=== PATIENT | female | born 1990 | race African-American/Black ===

== ENCOUNTER 2016-05-02 21:58 | Emergency (ER) | payer BC, OTHER ==
[~2016-05-02] VITALS: Ht 160 cm; Wt 72.5 kg
[~2016-05-02 21:58] MED LIST: PREN1TAB30 PO
[2016-05-02 21:59] VITALS: BP 148/76; PULSE 84; RESP 18; TEMP 97.7; O2SAT 98
--- NOTE | 2016-05-02 22:52 | PD ---
HPI Chief Complaint: Complaint Time Seen by Provider: 22:49 Travel History International Travel<30 days: No Contact w/Intl Traveler<30days: No Traveled to known affect area: No History of Present Illness HPI 26-year-old female that presents to the ED for evaluation of vaginal irritation. Per patient she's had this irritation for the past 6 days. Per patient she had a initially was 6 days ago but it went away for 2 days and then it now has come back. Per patient she has intercourse with the same individual. Per patient they dont use protection. Denies any pain but feels like there is pressure in the area. Denies any possibility of stating that she uses control. No chest pain or shortness of breath. No fevers chills or sweats. No discharge. No bleeding. Per patient he last missed her period was last month. No allergies to medication. PFSH Past Medical History Cardiovascular Problems: Yes (CARDIAC MURMUR AT ) Diminished Hearing: No Immunizations Current: Yes ?: Unknown LMP: 04/24/16 : 2 Para: 1 Miscarriage: 0 : 1 Past Surgical History Surgical History: No Previous Surgery Social History Alcohol Use: Yes Tobacco Use: No Substance Use: Yes (MARIJUANA) Allergies-Medications (Allergen,Severity, Reaction): Coded Allergies: No Known Allergies (Verified , 05/02/16) Reported Meds & Prescriptions Reported Meds & Active Scripts Active Vitamins ( Vit W/ Ferrous Fumara) 1 Tab Tab 1 Tab PO DAILY Review of Systems Except as stated in HPI: all other systems reviewed are Neg Physical Exam Narrative GENERAL: SKIN: Warm and dry. HEAD: Atraumatic. Normocephalic. EYES: Pupils equal and round. No scleral icterus. No injection or drainage. ENT: No nasal bleeding or discharge. Mucous membranes pink and moist. NECK: Trachea midline. No JVD. CARDIOVASCULAR: Regular rate and rhythm. RESPIRATORY: No accessory muscle use. Clear to auscultation. Breath sounds equal bilaterally. GASTROINTESTINAL: Abdomen soft, non-tender, nondistended. Hepatic and splenic margins not palpable. Vaginal exam: Done with female nurse present. Patient has no deformities in the labia or any lymphadenopathy noted. No masses. Patient does appear to have greenish/whitish discharge that is very foul smelling coming from the vagina itself. No cervical tenderness. No adnexal tenderness. MUSCULOSKELETAL: Extremities without clubbing, cyanosis, or edema. No obvious deformities. NEUROLOGICAL: Awake and alert. No obvious cranial nerve deficits. Motor grossly within normal limits. Five out of 5 muscle strength in the arms and legs. Normal speech. PSYCHIATRIC: Appropriate mood and affect; insight and judgment normal. Data Data Last Documented VS Vital Signs Date Time Temp Pulse Resp B/P Pulse Ox O2 Delivery O2 Flow Rate FiO2 05/02/16 21:59 97.7 84 18 148/76 98 Orders Gc And Chlamydia Pcr (05/02/16 22:29) Wet Prep Profile (05/02/16 22:29) Urinalysis - C+S If Indicated (05/02/16 22:29) MDM Medical Decision Making Medical Screen Exam Complete: Yes Emergency Medical Condition: Yes Medical Record Reviewed: Yes Differential Diagnosis STD versus bacterial vaginosis versus vaginitis versus yeast versus Trichomonas Narrative Course 26-year-old female that presents to the ED for evaluation of vaginal irritation. Patient was properly examined and was found to have signs and symptoms consistent appears to be vaginitis. Vaginal discharge noted. Labs were sent. Patient will be signed out to my attending pending lab report. Jack Carlos May 02, 2016 22:52
[2016-05-02 23:00] LABS: BACTERIA, URINE RARE /hpf; BLOOD, URINE NEG (NEG); COMMENT (UR) CULT NOT INDICATED; CULTURE IF INDICATED CULT NOT INDICATED; GLUCOSE,URINE NEG (NEG); KETONE, URINE NEG (NEG); MUCUS URINE FEW /lpf (OCC); NITRITE,URINE NEG (NEG); PH, URINE 6.5 (5.0-8.5); SQUAMOUS EPITHELIAL CELL URINE 4 /hpf (0-5); URINE COLOR YELLOW (YELLW/STRAW)
[2016-05-02] MEDS ORDERED: METR-1 PO (23:53)
--- NOTE | 2016-05-02 23:53 | PD ---
Physical Exam Narrative Patient was seen by physician legislative assistant and signed out to me. Data Data Last Documented VS Vital Signs Date Time Temp Pulse Resp B/P Pulse Ox O2 Delivery O2 Flow Rate FiO2 05/02/16 21:59 97.7 84 18 148/76 98 Orders Gc And Chlamydia Pcr (05/02/16 22:29) Wet Prep Profile (05/02/16 22:29) Urinalysis - C+S If Indicated (05/02/16 22:29) Labs Laboratory Tests Test 05/02/16 22:50 Urine Color YELLOW Urine Turbidity HAZY Urine pH 6.5 Urine Specific [place] 1.019 Urine Protein NEG mg/dL Urine Glucose (UA) NEG mg/dL Urine Ketones NEG mg/dL Urine Occult Blood NEG Urine Nitrite NEG Urine Bilirubin NEG Urine Urobilinogen LESS THAN 2.0 MG/DL Urine Leukocyte Esterase NEG Urine RBC LESS THAN 1 /hpf Urine WBC 2 /hpf Urine Squamous Epithelial 4 /hpf Cells Urine Bacteria RARE /hpf Urine Mucus FEW /lpf Microscopic Urinalysis Comment CULT NOT INDICATED Clue Cells (Wet Prep) PRESENT Vaginal Trichomonas (Wet Prep) NONE SEEN Vaginal Yeast (Wet Prep) NONE SEEN MDM Supervised Visit with JAD: Yes Interpretation(s) Wet prep positive for clue cell. Diagnosis Primary Impression: Bacterial vaginosis Patient Instructions: General Instructions Additional Instruction: Flagyl as directed. Follow-up with personal physician and voltage regulator assembler. Return if worse. Med/Other Pt SpecificInfo: Prescription(s) given Scripts Metronidazole (Flagyl)500 Mg Erj346 Mg PO TID #21 TAB Ref 0 Prov:Stevenson Avalos MD 05/02/16 Disposition: 01 DISCHARGE HOME Condition: Stable Stevenson Avalos MD May 02, 2016 23:53
[2016-05-03 00:37] LABS: CHLAMYDIA PCR NOT DETECTED (NOT DETECT); NEISSERIA PCR NOT DETECTED (NOT DETECT)
== END 2016-05-03 00:02 | disposition home or self-care (01) ==
LOC: NEPC 21:58
DX: N76.0 Acute vaginitis (principal); Z86.79 Personal history of other diseases of the circulatory system
CPT/HCPCS: 81001; 87210; 87491; 87591; 99283

== ENCOUNTER 2017-01-25 16:21 | Emergency (ER) | payer BC, MEDICAID, OTHER ==
[~2017-01-25 16:21] MED LIST changes: +METR-1 PO
[2017-01-25 16:24] VITALS: BP 139/88; PULSE 95; RESP 16; TEMP 98.8; O2SAT 98
--- NOTE | 2017-01-25 16:36 | PD ---
Physical Exam Date Seen by Provider: Jan 25, 2017 Time Seen by Provider: 16:34 Narrative 26-year-old Afro-Turkish female presents to the verge department with denies weakness, fatigue, increased urination, and recent frequent menstrual cycles in the last month. Patient also complains of headache today 7 out of 10. Patient' s last period started 21 January. Patient has no history of anemia in the past or diabetes. No known drug allergies. Data Data Last Documented VS Vital Signs Date Time Temp Pulse Resp B/P (MAP) Pulse Ox O2 Delivery O2 Flow Rate FiO2 01/25/17 16:24 98.8 95 16 139/88 (105) 98 MDM Medical Record Reviewed: Yes Supervised Visit with AJD: Yes Narrative Course Vital signs are stable. Urinalysis and urine is ordered. Patient is awaiting bed placement. Condition: Stable Oscar Reid Jan 25, 2017 16:36
[2017-01-25 18:04] LABS: BLOOD, URINE NEG (NEG); COMMENT (UR) CULT NOT INDICATED; CULTURE IF INDICATED CULT NOT INDICATED; GLUCOSE,URINE NEG (NEG); KETONE, URINE NEG (NEG); NITRITE,URINE NEG (NEG); SQUAMOUS EPITHELIAL CELL URINE 1 /hpf (0-5); URINE COLOR COLORLESS (YELLW/STRAW)
== END 2017-01-25 18:19 | disposition left against medical advice (07) ==
LOC: NED 16:21
DX: R51 Headache (principal); Z53.21 Procedure and treatment not carried out due to patient leaving prior to being seen by health care provider
CPT/HCPCS: 81001; 84703; 99281

== ENCOUNTER 2017-06-19 18:04 | Emergency (ER) | payer MEDICAID, OTHER ==
[~2017-06-19] VITALS: Ht 160 cm; Wt 70.0 kg
[2017-06-19 18:42] VITALS: BP 138/83; PULSE 100; RESP 16; TEMP 98.3; O2SAT 99
[2017-06-19] MEDS ORDERED: PENI500T PO (19:52)
[2017-06-19] MEDS ORDERED: MAGICADU2 SWISH-SPIT (19:52)
[2017-06-19] MEDS ORDERED: IBUP1TAB7 PO (19:52)
--- NOTE | 2017-06-19 19:59 | PD ---
HPI Chief Complaint: Oral / Dental Pain or Problem Time Seen by Provider: 19:46 Travel History International Travel<30 days: No Contact w/Intl Traveler<30days: No Traveled to known affect area: No History of Present Illness HPI 27-year-old female presents for evaluation of dental pain. Symptoms started 2 days ago. The pain is a throbbing pain which is constant localized to the right mandibular third molar. She just saw her dentist a few days ago and was told that she had to have all of her wisdom teeth extracted and she is being referred to an oral surgeon. She has no other complaints at this time. [facility] Past Medical History Cardiovascular Problems: Yes (CARDIAC MURMUR AT ) Diminished Hearing: No Immunizations Current: Yes ?: Not : 2 Para: 1 Miscarriage: 0 : 1 Social History Alcohol Use: Yes Tobacco Use: No Substance Use: Yes (MARIJUANA) Allergies-Medications (Allergen,Severity, Reaction): Coded Allergies: No Known Allergies (Verified , 05/02/16) Reported Meds & Prescriptions Reported Meds & Active Scripts Active Penicillin V Potassium 500 Mg Tab 500 Mg PO Q8H 7 Days Magic Mouthwash Adult Liq (Multi-Ingredient Mouthwash/Gargle) 120 Ml Susp 10 Ml SWISH-SPIT ACHS Each 5mL contains: Nystatin 200,000units, Diphenhydramine 4.25mg, Viscous Lidocaine 10mg, Hay syrup 0.8 mL Ibuprofen 800 Mg Tab 800 Mg PO Q6HR PRN Flagyl (Metronidazole) 500 Mg Tab 500 Mg PO TID Vitamin 27-0.8 mg ( Vit W/ Ferrous Fumara) 1 Tab Tab 1 Tab PO DAILY Review of Systems General / Constitutional: No: Fever, Chills HENT: Positive: Dental Difficulties Physical Exam Narrative GENERAL: Well-developed well-nourished female no acute distress SKIN: Warm and dry. HEAD: Atraumatic. Normocephalic. EYES: Pupils equal and round. No scleral icterus. No injection or drainage. ENT: No nasal bleeding or discharge. Mucous membranes pink and moist. The right mandibular third molar is impacted. The surrounding gumline is erythematous. NECK: Trachea midline. No JVD. CARDIOVASCULAR: Regular rate and rhythm. No murmur appreciated. RESPIRATORY: No accessory muscle use. Clear to auscultation. Breath sounds equal bilaterally. Data Data Last Documented VS Vital Signs Date Time Temp Pulse Resp B/P (MAP) Pulse Ox O2 Delivery O2 Flow Rate FiO2 06/19/17 18:42 98.3 100 16 138/83 (101) 99 Orders Orders Ed Discharge Order (06/19/17 19:57) MDM Medical Decision Making Medical Screen Exam Complete: Yes Emergency Medical Condition: Yes Medical Record Reviewed: Yes Differential Diagnosis Dental impaction versus periapical abscess versus dental caries versus pulpitis Narrative Course Examination is consistent with impaction of the right third molar. The surrounding gumline is somewhat erythematous. The patient will be discharged with ibuprofen, Magic mouthwash, penicillin. Diagnosis Primary Impression: Impacted third molar tooth Additional Instructions: Medication as prescribed. Follow-up with oral surgeon as scheduled. Return for any emergent medical conditions. Med/Other Pt SpecificInfo: Prescription(s) given Scripts Penicillin V Potassium (Penicillin V Potassium) 500 Mg Tab 500 MG PO Q8H for Infection for 7 Days, #21 TAB 0 Refills Prov: Vitor Abreu MD 06/19/17 [id number] Liq (Magic Mouthwash Adult Liq) 120 Ml Susp 10 ML SWISH-SPIT ACHS for Mouth sores, #120 ML 1 Refill Each 5mL contains: Nystatin 200,000units, Diphenhydramine 4.25mg, Viscous Lidocaine 10mg, Hay syrup 0.8 mL Prov: Vitor Abreu MD 06/19/17 Ibuprofen (Ibuprofen) 800 Mg Tab 800 MG PO Q6HR Y for PAIN, #40 TAB 0 Refills Prov: Vitor Abreu MD 06/19/17 Disposition: 01 DISCHARGE HOME Condition: Stable Caden Sargent Jun 19, 2017 19:59
== END 2017-06-19 20:20 | disposition home or self-care (01) ==
LOC: NEPD 18:04
DX: K01.1 Impacted teeth (principal)
CPT/HCPCS: 99283